=== PATIENT | female | born 1960 | race Caucasian/White ===

== ENCOUNTER 2021-07-08 08:17 | Observation (INO) | payer OTHER, MEDICAID, SELFPAY ==
[2021-07-08] VITALS (12 sets, daily range): BP systolic 90–157; BP diastolic 54–87; PULSE 44–81; RESP 16–21; TEMP 36.8–37.1; O2SAT 92–100; BMI 25.1; BMI 23.9
--- NOTE | 2021-07-08 08:20 | DI.RAD.S_ITS ---
PROCEDURE: XR ACUTE ABDOMEN SERIES INDICATIONS: severe abdominal pain TECHNIQUE: One view chest and two views of the abdomen were acquired. COMPARISON: None. FINDINGS: Surgical changes and devices: None. Chest: Lungs are clear. Heart size is normal. No pleural effusions. No pneumoperitoneum. Abdomen: There is a mildly distended small bowel loop in the left upper quadrant. Air-fluid levels are present. There is a moderate amount of stool in colon. No suspicious calcifications. Visualized solid organ contours appear normal. Bones: No suspicious bony lesions. IMPRESSION: ? Early small bowel obstruction. Dictated by: Gema Mckinley M.D. on 07/08/2021 at 8:04 Approved by: Gema Mckinley M.D. on 07/08/2021 at 8:08
--- NOTE | 2021-07-08 08:22 | ED.ABDPAIN ---
HPI - Abdominal Pain General Chief Complaint: Abdominal Pain Stated Complaint: abd back pain Time Seen by Provider: 07/08/21 08:21 History of Present Illness HPI narrative: 60-year-old female former smoker with history of kidney stones presents by EMS with a chief complaint of a relatively sudden onset abdominal pain that started low in her abdomen and has since radiated up and to her bilateral flanks. She describes it as a twisting pain and is without obvious provocation or palliation. She is profoundly nauseated but denies any vomiting. She denies change in bowel habits such as constipation or diarrhea and admits to decreased urine output. As stated, she does have a history of kidney stones but states this feels much different. She denies any change in medications or diet. Surgeries of her abdomen include hysterectomy and bladder sling a year ago or so. She was brought by paramedics and given fentanyl 50 mcg prior to her arrival. She last ate breakfast this morning Related Data Allergies Allergy/AdvReac Type Severity Reaction Status Date / Time No Known Drug Allergies Allergy Verified 07/08/21 08:26 Review of Systems Review of Systems Narrative: GENERAL: See HPI HEENT: Denies sinus pain, ear pain, sore throat, difficulty swallowing, dizziness. RESPIRATORY: Denies dyspnea, cough, wheezing, hemoptysis, sputum. CARDIOVASCULAR: Denies chest pain, palpitations, orthopnea, edema, GASTROINTESTINAL: See HPI : Denies dysuria, frequency, incontinence, hematuria, urinary retention. MUSCULOSKELETAL: denies weakness, joint pain, or bony pain SKIN: Denies rash, skin lesions, or other NEUROLOGIC: Denies weakness, headache, numbness, change in speech, confusion, seizures, incoordination. PSYCHIATRIC: No concerning psychosocial issues. 12 point review of systems is negative except for those stated above Patient History Social History Smoking Status: Never smoker Exam Narrative Exam Narrative: GENERAL: [60] year old patient appears stated age. Well-developed patient, in moderate distress, clearly in pain, tearful, holding an emesis bag HEAD: Atraumatic. Normocephalic. EYES: Pupils equal round and reactive. Extraocular motions intact. No scleral icterus. No injection or drainage. ENT: Nose without bleeding, purulent drainage. Throat without erythema, tonsillar hypertrophy or exudate. Airway patent. NECK: Trachea midline. Non tender CARDIOVASCULAR: Regular rate and rhythm without murmurs, gallops, or rubs. RESPIRATORY: Clear to auscultation. Breath sounds equal bilaterally. No wheezes, rales, or rhonchi. GASTROINTESTINAL: Abdomen soft, non-tender, nondistended. Bowel sounds present in all 4 quadrants EXTREMITIES: No edema or joint tenderness. BACK: Nontender without deformity or crepitance. No flank tenderness. NEURO: AOx3. SKIN: No rash or erythema of visible areas Initial Vital Signs Initial Vital Signs: Vital Signs Temperature 98.3 F 07/08/21 08:17 Pulse Rate 70 07/08/21 08:17 Respiratory Rate 18 07/08/21 08:17 Blood Pressure 130/87 07/08/21 08:17 Pulse Oximetry 100 07/08/21 08:17 Course Orders Ordered: ED Orders 07/08/21 08:10 Complete Blood Count AUTO DIFF Stat Comprehensive Metabolic Panel Stat Lactate (Lactic Acid) Stat Lipase Stat 07/08/21 08:20 XR acute abdomen series Stat 07/08/21 09:08 CT abdomen pelvis w con Stat 07/08/21 09:45 COVID19 -Nasal RAPID/Pre-Proc Stat Discontinued Medications Hydromorphone HCl (Hydromorphone 0.5 Mg Inj) 0.5 mg IV NOW ONE Stop: 07/08/21 08:21 Last Admin: 07/08/21 08:38 Dose: 0.5 mg Documented by: KADEEM Sodium Chloride (Normal Saline 0.9%) 1,000 mls @ 1,000 mls/hr IV BOLUS ONE Stop: 07/08/21 09:19 Last Infusion: 07/08/21 11:00 Dose: 0 mls/hr Documented by: Admin: 07/08/21 08:38 Dose: 1,000 mls/hr Documented by: KADEEM Midazolam HCl (Midazolam 5 Mg/Ml Vial) 2 mg IV NOW ONE Stop: 07/08/21 09:47 Last Admin: 07/08/21 10:09 Dose: 2 mg Documented by: KADEEM Ondansetron HCl (Ondansetron 4 Mg/2 Ml Inj) 4 mg IV NOW ONE Stop: 07/08/21 08:21 Last Admin: 07/08/21 08:38 Dose: 4 mg Documented by: KBRYERS Vital Signs Vital signs: Vital Signs - 8 hr 07/08/21 08:17 07/08/21 09:00 07/08/21 09:59 Temperature 98.3 F Pulse Rate 70 64 72 Respiratory Rate 18 18 20 Blood Pressure 130/87 120/75 Pulse Oximetry 100 98 100 07/08/21 10:00 07/08/21 10:04 Temperature Pulse Rate 69 71 Respiratory Rate 20 20 Blood Pressure 157/68 H Pulse Oximetry 100 99 MDM - Abdominal Pain Lab Data Result diagrams: 07/08/21 08:10 07/08/21 08:10 Labs: Lab Results 07/08/21 07/08/21 07/08/21 Range/Units 08:10 08:10 08:10 WBC 7.7 (4.5-11.0) X10^3/uL RBC 4.68 (4.0-5.2) X10^6/uL Hgb 14.1 (12.0-16.0) g/dL Hct 41.1 (36-46) % MCV 87.8 (80-100) fL MCH 30.0 (26-34) PG MCHC 34.2 (30-36) % RDW 14.3 (11.6-14.8) % Plt Count 175 (150-400) X10^3/uL Neut % (Auto) 74.9 (50-75) % Lymph % (Auto) 19.1 L (25-40) % [place] % (Auto) 5.1 (3-14) % Eos % (Auto) 0.4 L (2-4) % Baso % (Auto) 0.5 (0-2) % Neut # (Auto) 5800 (6628-9081) /uL Lymph # (Auto) 1500 (0124-6053) /uL [place] # (Auto) 400 (0-900) /uL Eos # (Auto) 0 (0-450) /uL Baso # (Auto) 0 (0-100) /uL Sodium 138 (137-145) mmol/L Potassium 3.7 (3.4-5.1) mmol/L Chloride 105 (98-107) mmol/L Carbon Dioxide 23 (22-32) mmol/L BUN 18 H (7-17) mg/dL Creatinine 0.75 (0.52-1.04) mg/dL Estimated GFR > 60 (>60) mL/min BUN/Creatinine Ratio 24.0 H (6-22) Glucose 139 H (80-110) mg/dL Lactate 1.9 (0.7-2.1) mmol/L Calcium 9.7 (8.4-10.2) mg/dL Total Bilirubin 0.4 (0.2-1.3) mg/dL AST 34 (14-36) IU/L ALT 26 (<35) IU/L Alkaline Phosphatase 85 (38-126) U/L Total Protein 7.7 (6.3-8.2) g/dL Albumin 4.8 (3.5-5.0) g/dL Globulin 2.9 (1.7-4.1) g/dL Albumin/Globulin Ratio 1.7 (1.0-2.8) Lipase 115 (23-300) U/L SARS-CoV-2 (PCR) (Negative) 07/08/21 Range/Units 09:45 WBC (4.5-11.0) X10^3/uL RBC (4.0-5.2) X10^6/uL Hgb (12.0-16.0) g/dL Hct (36-46) % MCV (80-100) fL MCH (26-34) PG MCHC (30-36) % RDW (11.6-14.8) % Plt Count (150-400) X10^3/uL Neut % (Auto) (50-75) % Lymph % (Auto) (25-40) % [place] % (Auto) (3-14) % Eos % (Auto) (2-4) % Baso % (Auto) (0-2) % Neut # (Auto) (5683-6992) /uL Lymph # (Auto) (9960-1664) /uL [place] # (Auto) (0-900) /uL Eos # (Auto) (0-450) /uL Baso # (Auto) (0-100) /uL Sodium (137-145) mmol/L Potassium (3.4-5.1) mmol/L Chloride (98-107) mmol/L Carbon Dioxide (22-32) mmol/L BUN (7-17) mg/dL Creatinine (0.52-1.04) mg/dL Estimated GFR (>60) mL/min BUN/Creatinine Ratio (6-22) Glucose (80-110) mg/dL Lactate (0.7-2.1) mmol/L Calcium (8.4-10.2) mg/dL Total Bilirubin (0.2-1.3) mg/dL AST (14-36) IU/L ALT (<35) IU/L Alkaline Phosphatase (38-126) U/L Total Protein (6.3-8.2) g/dL Albumin (3.5-5.0) g/dL Globulin (1.7-4.1) g/dL Albumin/Globulin Ratio (1.0-2.8) Lipase (23-300) U/L SARS-CoV-2 (PCR) Negative (Negative) Imaging Data Abdominal x-ray: Radiologist's Impression: Launch?Image [address] [address] XRay Report Signed Patient: CHAZ VALERIO MR#: [id number] : 1960 Acct:[id number] Age/Sex: 60 / F Date of Service: 07/08/21 Loc: ED Accession Number: [id number] ?? Procedure: XR acute abdomen series Ordering Provider: John Cardona D.O. PROCEDURE:? XR ACUTE ABDOMEN SERIES ? INDICATIONS:? severe abdominal pain ? TECHNIQUE:? One view chest and two views of the abdomen were acquired.? ? COMPARISON:? None. ? FINDINGS:? ? Surgical changes and devices:? None.? ? Chest:? Lungs are clear.? Heart size is normal.? No pleural effusions.? No pneumoperitoneum.? ? Abdomen:? There is a mildly distended small bowel loop in the left upper quadrant.? Air-fluid levels are present.? There is a moderate amount of stool in colon.? No suspicious calcifications.? Visualized solid organ contours appear normal.? ? Bones:? No suspicious bony lesions.? ? IMPRESSION:? ?? Early small bowel obstruction. ? ? Dictated by: Gema Mckinley M.D. on 07/08/2021 at 8:04 ? ? Approved by: Gema Mckinley M.D. on 07/08/2021 at 8:08 ? CT scan - abdomen/pelvis: Radiologist's Impression: [address] [address] [address] Scan Report Signed Patient: CHAZ VALERIO MR#: [id number] : 1960 Acct:[id number] Age/Sex: 60 / F Date of Service: 07/08/21 Loc: ED Accession Number: [id number] ?? Procedure: CT abdomen pelvis w con Ordering Provider: John Cardona D.O. PROCEDURE:? CT ABDOMEN PELVIS W CON ? INDICATIONS:? severe abdominal pain, upper, lower, radiates to back ? TECHNIQUE:? After the administration of IV contrast, axial sections were acquired from the lung bases to the pubic symphysis.? Coronal and sagittal reformats were performed.? For radiation dose reduction, the following was used:? automated exposure control, adjustment of mA and/or kV according to patient size. ? COMPARISON:? [facility], CR, XR ACUTE ABDOMEN SERIES, 07/08/2021, 8:29. ? FINDINGS:? Image quality:? Excellent.? ? Lung bases:? A 1.8 cm lucency in the right middle lobe compatible with a? pneumatocele or emphysematous bulla. Bilateral breast implants.? Small hiatal hernia. Heart:? No significant findings. ? ? ABDOMEN: Liver:? Normal size.? Mild hepatic steatosis.? ? Gallbladder:? Unremarkable.? ? Biliary ducts:? Unremarkable.? ? Pancreas:? Unremarkable.? ? Spleen:? Unremarkable.? ? Adrenal Glands:? A tiny 0.5 cm nodule is suspected in the right adrenal.? ? Kidneys and Ureters:? Unremarkable.? ? ? Stomach and Bowel:? Stomach is normal in size.? There is an air-fluid level in the gastric lumen.? Fluid-filled small intestine is mild prominence in caliber measuring up to 3 cm.? There are multiple air-fluid levels in small bowel loops in left upper abdomen. ?There is a transitional point in central pelvis.? Abundant colonic gas is present.? The CT findings suggest partial small bowel obstruction.? There are colonic diverticula.? No CT findings to suggest acute diverticulitis.? There is appearance of mild thickening of the proximal transverse colon, which is probably related to peristalsis. Peritoneum:? There is a 0.6 cm peritoneal nodule anterior to the spleen, probably a small splenule.? No abnormal intraperitoneal fluid.? No free air.? ? Ventral Wall: ? Small fat containing umbilical hernia.? Abdominal Nodes:? No retroperitoneal or mesenteric adenopathy by size criteria.? Vessels:? Aorta and inferior vena cava are normal in size.? ? PELVIS: Pelvic Organs:? There is no pathological free-fluid in the cul-de-sac.? ? Bladder:? Unremarkable.? ? Pelvic Nodes: No enlarged lymph nodes.? Miscellaneous: No inguinal hernias are seen. ? ? ? Bones:? Mild degenerative changes in lumbar spine.? IMPRESSION:? ? 1. Suspect partial small bowel obstruction.? The transitional point is in the central pelvis. ? 2. Diverticulosis without diverticulitis. ? 3. Small hiatal hernia.? ? ? The result was discussed with Dr. Cardona. ? Dictated by: Gema Mckinley M.D. on 07/08/2021 at 8:54 ? ? Approved by: Gema Mckinley M.D. on 07/08/2021 at 9:06 ? Discharge Plan Departure Patient Disposition: Admitted As Inpatient Clinical Impression: Small bowel obstruction
[2021-07-08] MEDS: HYDROMORPHONE 0.5 MG INJ IV (08:38)
[2021-07-08] MEDS: SODIUM CHLORIDE 0.9% 1,000 ML 1000 ML IV (08:38)
[2021-07-08] MEDS: ONDANSETRON 4 MG/2 ML INJ IV (08:38)
[2021-07-08 08:49] LABS: Alanine Aminotransferase 26 IU/L (<35); Albumin 4.8 g/dL (3.5-5.0); Albumin Globulin Ratio 1.7 (1.0-2.8); Alkaline Phosphatase 85 U/L (38-126); Aspartate Aminotransferase 34 IU/L (14-36); Bilirubin Total 0.4 mg/dL (0.2-1.3); Blood Urea Nitrogen 18 mg/dL (7-17); Calcium 9.7 mg/dL (8.4-10.2); Carbon Dioxide 23 mmol/L (22-32); Chloride 105 mmol/L (98-107); Estimated Glomerular Filt Rate > 60 mL/min (>60); Globulin 2.9 g/dL (1.7-4.1); Glucose 139 mg/dL (80-110); HEMOLYSIS < 15 (0-50); Lipase 115 U/L (23-300); Potassium 3.7 mmol/L (3.4-5.1); Sodium 138 mmol/L (137-145); Total Protein 7.7 g/dL (6.3-8.2)
[2021-07-08 08:51] LABS: Add Manual Diff / Slide Review NO; Basophils Absolute Auto 0 /uL (0-100); Basophils Percent Auto 0.5 % (0-2); Eosinophils Absolute Auto 0 /uL (0-450); Eosinophils Percent Auto 0.4 % (2-4); Hematocrit 41.1 % (36-46); Hemoglobin 14.1 g/dL (12.0-16.0); Lymphocytes Absolute Auto 1500 /uL (1100-4500); Lymphocytes Percent Auto 19.1 % (25-40); Mean Corpuscular HGB Conc 34.2 % (30-36); Mean Corpuscular Volume 87.8 fL (80-100); Monocytes Absolute Auto 400 /uL (0-900); Monocytes Percent Auto 5.1 % (3-14); Neutrophils Absolute Auto 5800 /uL (1500-7000); Neutrophils Percent Auto 74.9 % (50-75); Platelet Count 175 X10^3/uL (150-400); Red Blood Cell Count 4.68 X10^6/uL (4.0-5.2); Red Cell Distribution Width 14.3 % (11.6-14.8); White Blood Cell Count 7.7 X10^3/uL (4.5-11.0)
--- NOTE | 2021-07-08 09:08 | DI.CT.S_ITS ---
PROCEDURE: CT ABDOMEN PELVIS W CON INDICATIONS: severe abdominal pain, upper, lower, radiates to back TECHNIQUE: After the administration of IV contrast, axial sections were acquired from the lung bases to the pubic symphysis. Coronal and sagittal reformats were performed. For radiation dose reduction, the following was used: automated exposure control, adjustment of mA and/or kV according to patient size. COMPARISON: [facility], CR, XR ACUTE ABDOMEN SERIES, 07/08/2021, 8:29. FINDINGS: Image quality: Excellent. Lung bases: A 1.8 cm lucency in the right middle lobe compatible with a pneumatocele or emphysematous bulla. Bilateral breast implants. Small hiatal hernia. Heart: No significant findings. ABDOMEN: Liver: Normal size. Mild hepatic steatosis. Gallbladder: Unremarkable. Biliary ducts: Unremarkable. Pancreas: Unremarkable. Spleen: Unremarkable. Adrenal Glands: A tiny 0.5 cm nodule is suspected in the right adrenal. Kidneys and Ureters: Unremarkable. Stomach and Bowel: Stomach is normal in size. There is an air-fluid level in the gastric lumen. Fluid-filled small intestine is mild prominence in caliber measuring up to 3 cm. There are multiple air-fluid levels in small bowel loops in left upper abdomen. There is a transitional point in central pelvis. Abundant colonic gas is present. The CT findings suggest partial small bowel obstruction. There are colonic diverticula. No CT findings to suggest acute diverticulitis. There is appearance of mild thickening of the proximal transverse colon, which is probably related to peristalsis. Peritoneum: There is a 0.6 cm peritoneal nodule anterior to the spleen, probably a small splenule. No abnormal intraperitoneal fluid. No free air. Ventral Wall: Small fat containing umbilical hernia. Abdominal Nodes: No retroperitoneal or mesenteric adenopathy by size criteria. Vessels: Aorta and inferior vena cava are normal in size. PELVIS: Pelvic Organs: There is no pathological free-fluid in the cul-de-sac. Bladder: Unremarkable. Pelvic Nodes: No enlarged lymph nodes. Miscellaneous: No inguinal hernias are seen. Bones: Mild degenerative changes in lumbar spine. IMPRESSION: 1. Suspect partial small bowel obstruction. The transitional point is in the central pelvis. 2. Diverticulosis without diverticulitis. 3. Small hiatal hernia. The result was discussed with Dr. Cardona. Dictated by: Gema Mckinley M.D. on 07/08/2021 at 8:54 Approved by: Gema Mkcinley M.D. on 07/08/2021 at 9:06
[2021-07-08 10:07] LABS: COVID19 -Nasal RAPID Negative (Negative)
[2021-07-08] MEDS: MIDAZOLAM 5 MG/ML VIAL 2 MG IV (10:09)
--- NOTE | 2021-07-08 10:15 | PC.NURSE ---
attempted to place ngt 18 fr both right and left nares x 4 total attempts (2x each nare) by 2 RN's, premedicated with versed 2 mg iv.
[2021-07-08 10:25] LABS: Lactate (Lactic Acid) 1.9 mmol/L (0.7-2.1)
--- NOTE | 2021-07-08 11:11 | PC.NURSE ---
Attempted to insert 14french NGT twice; patient did not tolerate procedure; unable to insert.
[2021-07-08] MEDS: MORPHINE 4 MG/ML INJ IV (12:07)
[2021-07-08] MEDS: ONDANSETRON 4 MG/2 ML INJ (12:08)
--- NOTE | 2021-07-08 12:12 | PC.NURSE ---
Addendum entered by Lanny Talamantes R.N. 07/08/21 18:37: 1700-Pt up ambulating to BR as SBA. Urine clear, sent for UA. NS infusing @ 150, Pt reports significant improvement to pain, denies nausea. Tolerating clear liquids at meal. Addendum entered by Lanny Talamantes R.N. 07/08/21 16:49: Pt markedly more comfortable, admission completed, denies nausea. Reduced Morphine to 1mg IV. Tolerating clear liq diet Addendum entered by Lanny Talamantes R.N. 07/08/21 13:13: 1300-Pt is finally having some relief with morphine and antinausea medication. 2L nc placed for Spo2 88% Original Note: 1130-Admit: Pt arrived from ER moaning in pain. Transferred to bed , Pt is diaphoretic, screaming and rolling in bed. Call into Dr Cardona as no pain medications ordered yet, Verbal order for Dilaudid, Pt declines, as it made her nauseated and didnt help with pain in ER. Dr Marquez admitting and Ordered Morphine and zofran. Given. Pt remains 8/10, unable to get into comfortable position. No NG placed in ER, unable d/t pain. Will work on admission after patient is more comfortable.
[2021-07-08] MEDS: METOCLOPRAMIDE 10 MG/2 ML INJ IV (12:54)
[2021-07-08] MEDS: SODIUM CHLORIDE 0.9% 1,000 ML 150 ML IV ×2 (12:54→18:59)
[2021-07-08] MEDS: MORPHINE 2 MG/ML INJ IV (12:55)
--- NOTE | 2021-07-08 13:06 | P.CONS_ITS ---
History of Present Illness Consult details Date Patient Seen: 07/08/21 Chief complaint: abd back pain Narrative: Allison is a 60-year-old woman who presented with several hours of sudden severe abdominal pain to the ER today. She says that the severe pain comes in waves but there is always some baseline pain. She said the pain started in her lower abdomen when she is having bowel movements this morning and has since spread to her upper abdomen and radiates to her back. She also reports feeling burning pain in her rectum when she wiped. She had several bowel movements today and she has passed gas multiple times today. She is nauseous but she has not vomited. A CT scan reported that she may have had a partial small bowel obstruction. She reports that she had an open appendectomy many years ago and a hysterectomy and bladder sling 1 year ago. Meds Home Medications and Allergies Allergies Allergy/AdvReac Type Severity Reaction Status Date / Time No Known Drug Allergies Allergy Verified 07/08/21 08:26 Exam Vital Signs (past 8 hours): - 07/08/21 08:17 07/08/21 09:00 07/08/21 09:59 Temperature 98.3 F Pulse Rate 70 64 72 Respiratory Rate 18 18 20 Blood Pressure 130/87 120/75 Pulse Oximetry 100 98 100 07/08/21 10:00 07/08/21 10:04 07/08/21 10:30 Temperature Pulse Rate 69 71 61 Respiratory Rate 20 20 21 Blood Pressure 157/68 H 132/60 Pulse Oximetry 100 99 92 07/08/21 11:00 07/08/21 11:01 07/08/21 12:18 Temperature 98.7 F Pulse Rate 81 65 63 Respiratory Rate 21 21 18 Blood Pressure 142/65 H 131/62 Pulse Oximetry 100 100 100 Oxygen Delivery Method Room Air Oxygen Flow Rate 0 Narrative Exam Narrative: She is anxious appearing and in distress Abdomen is diffusely tender but no tenderness to percussion There is a right transverse appendectomy scar Objective Labs Result Diagrams: 07/08/21 08:10 07/08/21 08:10 Labs: Laboratory Results - last 24 hr 07/08/21 07/08/21 07/08/21 08:10 08:10 08:10 WBC 7.7 RBC 4.68 Hgb 14.1 Hct 41.1 MCV 87.8 MCH 30.0 MCHC 34.2 RDW 14.3 Plt Count 175 Neut % (Auto) 74.9 Lymph % (Auto) 19.1 L [place] % (Auto) 5.1 Eos % (Auto) 0.4 L Baso % (Auto) 0.5 Neut # (Auto) 5800 Lymph # (Auto) 1500 [place] # (Auto) 400 Eos # (Auto) 0 Baso # (Auto) 0 Sodium 138 Potassium 3.7 Chloride 105 Carbon Dioxide 23 BUN 18 H Creatinine 0.75 Estimated GFR > 60 BUN/Creatinine Ratio 24.0 H Glucose 139 H Lactate 1.9 Calcium 9.7 Total Bilirubin 0.4 AST 34 ALT 26 Alkaline Phosphatase 85 Total Protein 7.7 Albumin 4.8 Globulin 2.9 Albumin/Globulin Ratio 1.7 Lipase 115 SARS-CoV-2 (PCR) 07/08/21 09:45 WBC RBC Hgb Hct MCV MCH MCHC RDW Plt Count Neut % (Auto) Lymph % (Auto) [place] % (Auto) Eos % (Auto) Baso % (Auto) Neut # (Auto) Lymph # (Auto) [place] # (Auto) Eos # (Auto) Baso # (Auto) Sodium Potassium Chloride Carbon Dioxide BUN Creatinine Estimated GFR BUN/Creatinine Ratio Glucose Lactate Calcium Total Bilirubin AST ALT Alkaline Phosphatase Total Protein Albumin Globulin Albumin/Globulin Ratio Lipase SARS-CoV-2 (PCR) Negative [facility] Tobacco & Substance Use Smoking Status: Never smoker Assessment & Plan Assessment and plan (1) Abdominal pain: Qualifiers: Abdominal location: unspecified location Qualified Code(s): R10.9 - Unspecified abdominal pain Status: Acute Plan Although the radiologist reported a possible partial small-bowel obstruction she has been passing gas since her symptoms started ruling out a clinical small- bowel obstruction. Her pain out of proportion to exam could reflect a mesen teric ischemia or an internal hernia but with normal labs, vital signs and no angelica peritonitis on exam this remains less likely. Recommend continuing to check lactate levels and vital signs. If her symptoms improve she could be started on a clear liquid diet and advanced as tolerates. If her lactate suddenly spikes or her vital signs become abnormal we could proceed with an exploratory laparoscopy. Time Spent With Patient Critical Care time: I spent a total of [] minutes of critical care time on this patient's care t lesli; this time is exclusive of procedural time.
--- NOTE | 2021-07-08 14:19 | P.HP_ITS ---
History of Present Illness History of Present Illness Date Patient Seen: 07/08/21 Date of Onset of Symptoms: 07/08/21 Chief complaint: abd back pain Narrative: 60-year-old female with history of kidney stones developed acute abdominal pain around 530 this morning. Discomfort started while [place] who lives on [place]. The pain became progressively worse and she decided to have checked out in the ED. Location of pain is bilateral upper and lower. She did have some loose bowel movements this morning. She has not had dry heaves or vomiting. She has history of prior hysterectomy and bladder sling. On ER evaluation, CBC is normal, lytes normal, lactate normal. CT scan showed possible partial small-bowel obstruction, diverticulosis without diverticulitis, small hiatal hernia. Surgery was consulted. Patient History Family & Social History Safety & Behavioral: Feels Safe in Current Yes Environment Been Physically Hurt or No Threatened By a Person Tobacco & Substance use: Smoking Status Never smoker Substance Use Type does not use Meds Home Medications and Allergies Home Medications Medication Instructions Recorded Confirmed Type No Known Home Medications 07/08/21 07/08/21 History Allergies Allergy/AdvReac Type Severity Reaction Status Date / Time No Known Drug Allergies Allergy Verified 07/08/21 08:26 Review of Systems Review of Systems Narrative: No fever, chills, cough, chest pain, dyspnea, urinary discomfort, rash. Exam Vital Signs (past 8 hours): - 07/08/21 08:17 07/08/21 09:00 07/08/21 09:59 Temperature 98.3 F Pulse Rate 70 64 72 Respiratory Rate 18 18 20 Blood Pressure 130/87 120/75 Pulse Oximetry 100 98 100 07/08/21 10:00 07/08/21 10:04 07/08/21 10:30 Temperature Pulse Rate 69 71 61 Respiratory Rate 20 20 21 Blood Pressure 157/68 H 132/60 Pulse Oximetry 100 99 92 07/08/21 11:00 07/08/21 11:01 07/08/21 12:18 Temperature 98.7 F Pulse Rate 81 65 63 Respiratory Rate 21 21 18 Blood Pressure 142/65 H 131/62 Pulse Oximetry 100 100 100 Oxygen Delivery Method Room Air Oxygen Flow Rate 0 Narrative Exam Narrative: General: Alert and currently NAD HEENT: Pupils equal oropharynx moist Neck: No lymphadenopathy Lungs: Clear to auscultation Heart: Regular rate and rhythm without murmur Abdomen: Nondistended, soft, tender with deep palpation in all 4 quadrants, no abdominal mass or HSM Extremities: No edema Neurological normal affect and speech Objective Labs Result Diagrams: 07/08/21 08:10 07/08/21 08:10 Labs: Laboratory Results - last 24 hr 07/08/21 07/08/21 07/08/21 08:10 08:10 08:10 WBC 7.7 RBC 4.68 Hgb 14.1 Hct 41.1 MCV 87.8 MCH 30.0 MCHC 34.2 RDW 14.3 Plt Count 175 Neut % (Auto) 74.9 Lymph % (Auto) 19.1 L [place] % (Auto) 5.1 Eos % (Auto) 0.4 L Baso % (Auto) 0.5 Neut # (Auto) 5800 Lymph # (Auto) 1500 [place] # (Auto) 400 Eos # (Auto) 0 Baso # (Auto) 0 Sodium 138 Potassium 3.7 Chloride 105 Carbon Dioxide 23 BUN 18 H Creatinine 0.75 Estimated GFR > 60 BUN/Creatinine Ratio 24.0 H Glucose 139 H Lactate 1.9 Calcium 9.7 Total Bilirubin 0.4 AST 34 ALT 26 Alkaline Phosphatase 85 Total Protein 7.7 Albumin 4.8 Globulin 2.9 Albumin/Globulin Ratio 1.7 Lipase 115 SARS-CoV-2 (PCR) 07/08/21 09:45 WBC RBC Hgb Hct MCV MCH MCHC RDW Plt Count Neut % (Auto) Lymph % (Auto) [place] % (Auto) Eos % (Auto) Baso % (Auto) Neut # (Auto) Lymph # (Auto) [place] # (Auto) Eos # (Auto) Baso # (Auto) Sodium Potassium Chloride Carbon Dioxide BUN Creatinine Estimated GFR BUN/Creatinine Ratio Glucose Lactate Calcium Total Bilirubin AST ALT Alkaline Phosphatase Total Protein Albumin Globulin Albumin/Globulin Ratio Lipase SARS-CoV-2 (PCR) Negative Assessment & Plan Assessment & Plan narrative: 1. Possible small-bowel obstruction versus bowel spasm -CT scan with multiple air-fluid levels, but patient passing gas and had bowel movements and not vomiting which argues against SBO -Dr. Haskins evaluated patient, no surgery indicated at this time -pain responded to IV morphine -continue IV morphine as needed -IV fluids -clear liquid diet -overnight observation Time Spent With Patient Critical Care time: I spent a total of [] minutes of critical care time on this patient's care today; this time is exclusive of procedural time.
[2021-07-08] MEDS: MORPHINE 2 MG/ML INJ 1 MG IV (15:52)
[2021-07-08 18:37] LABS: Appearance Urine UA CLEAR; Bilirubin Urine UA NEGATIVE (NEGATIVE); Color Urine UA YELLOW; Glucose Urine UA NEGATIVE (Negative); Ketones Urine UA 1+ (NEGATIVE); Leukocyte Esterase Urine UA NEGATIVE (NEGATIVE); Nitrite Urine UA NEGATIVE (Negative); Occult Blood Urine UA TRACE-INTACT (Negative); Protein Urine UA NEGATIVE (Negative); Urobilinogen Urine UA 0.2 E.U./dL (0.2)
[2021-07-08 18:48] LABS: pH Urine UA 6.5 (4.5-8.0)
[2021-07-08 18:53] LABS: RBC Urine 5-10/HPF (0-5/HPF); WBC Urine 1-5/HPF (0-5/HPF)
[2021-07-08 18:54] LABS: Bacteria Urine None Seen; Culture Indicated Urine Cult Not Indicated; Squamous Epithelial Cell Urine 1-5 /HPF (0-5/HPF)
[2021-07-09] VITALS: BP 88/50; PULSE 44; RESP 16; O2SAT 96
[2021-07-09 00:05] VITALS: BP 86/50; PULSE 49; RESP 17; TEMP 36.4; O2SAT 97
[2021-07-09] MEDS: SODIUM CHLORIDE 0.9% 1,000 ML 150 ML IV (01:40)
[2021-07-09 04:00] VITALS: BP 92/52; PULSE 64; RESP 15; TEMP 36.7; O2SAT 99
[2021-07-09 05:19] LABS: Add Manual Diff / Slide Review NO; Basophils Absolute Auto 0 /uL (0-100); Basophils Percent Auto 0.7 % (0-2); Eosinophils Absolute Auto 100 /uL (0-450); Hematocrit 38.5 % (36-46); Lymphocytes Absolute Auto 2400 /uL (1100-4500); Lymphocytes Percent Auto 46.3 % (25-40); Mean Corpuscular HGB Conc 33.9 % (30-36); Mean Corpuscular Hemoglobin 29.8 PG (26-34); Mean Corpuscular Volume 88.1 fL (80-100); Monocytes Absolute Auto 400 /uL (0-900); Monocytes Percent Auto 8.2 % (3-14); Neutrophils Absolute Auto 2300 /uL (1500-7000); Neutrophils Percent Auto 43.8 % (50-75); Platelet Count 155 X10^3/uL (150-400); Red Blood Cell Count 4.37 X10^6/uL (4.0-5.2); Red Cell Distribution Width 14.2 % (11.6-14.8); White Blood Cell Count 5.2 X10^3/uL (4.5-11.0)
[2021-07-09 05:33] LABS: Prothrombin Time 11.7 SECONDS (10.1-12.7)
[2021-07-09 05:37] LABS: BUN Creatinine Ratio 11.4 (6-22); Blood Urea Nitrogen 8 mg/dL (7-17); Calcium 8.8 mg/dL (8.4-10.2); Carbon Dioxide 24 mmol/L (22-32); Chloride 114 mmol/L (98-107); Estimated Glomerular Filt Rate > 60 mL/min (>60); Glucose 79 mg/dL (80-110); HEMOLYSIS < 15 (0-50); Potassium 4.1 mmol/L (3.4-5.1); Sodium 141 mmol/L (137-145)
[2021-07-09 08:58] VITALS: O2SAT 99
--- NOTE | 2021-07-09 11:23 | CM.IDA ---
DCP: Case received, EMR reviewed and met with patient. Introduced self and role. Was able to obtain information regarding patient's baseline status prior to hospitalization. DCP assessment completed with information currently available. Patient is a 60 year old female who admitted yesterday morning to the care of the hospitalist team. PCP: [facility] in [place]. Payer: confirmed: [employer]. Patient came to the hospital via ambulance secondary to having acute abdominal pain, while she was visiting her son on [facility] [place]. Patient was diagnosed with possible small-bowel obstruction versus bowel spasm. She was consulted by Dr. Ji, surgeon, no surgery indicated at this time. Met with patient in her room. She is pleasant, alert and oriented, and was sitting up in bed. She indicated, I am feeling so much better today than yesterday. Confirmed that patient resides in [place], and drove up to visit her son on [facility] [place]. She is independent at her baseline, and is employed at [employer]. She was concerned if her insurance will pay for services. Let her know that her insurance will be billed, if they do not cover some of her stay, she can always get [facility] application, and she can discuss with billing if needed. She plans to go back home, instead of [facility] upon discharge. P: Patient has discharge orders for home today. Arabella Machado RN/Performing [employer] Manager Discharge Planning/Care Management CM Discharge Assessment Start: 07/09/21 11:22 Freq: Status: Discharge Protocol: Document 07/09/21 11:22 (Rec: 07/09/21 11:22 [id number]) Discharge Planning Assessment Assigned Carpet Layer Arabella Machado RN/[employer]forming [employer] Manager Advance Directives? No History Provided By Patient,Medical Record Prior Living Arrangements House Household Members friend(s) Type of transporation used prior to Drives own vehicle admit Willing to Return to Facility? No Independent with ADL's Yes Is patient alert and oriented? Yes Caregiver for Another No Discharge Plan Home Transportation Arrangement Family or self Referrals Initiated None needed Whiteboard Updated in Patient Room with Yes name and ext. # of Carpet Layer Review Status In Process Next Review Type Continued Stay Review
--- NOTE | 2021-07-09 20:54 | PM.DS.1 ---
History of Present Illness History of Present Illness Chief complaint: abd back pain Narrative: 60-year-old female with history of kidney stones developed acute abdominal pain around 530 this morning. Discomfort started while she was [place] from [place] son who lives on [place]. The pain became progressively worse and she decided to have checked out in the ED. Location of pain is bilateral upper and lower. She did have some loose bowel movements this morning. She has not had dry heaves or vomiting. She has history of prior hysterectomy and bladder sling. On ER evaluation, CBC is normal, lytes normal, lactate normal. CT scan showed possible partial small-bowel obstruction, diverticulosis without diverticulitis, small hiatal hernia. Surgery was consulted. Discharge Providers Provider Date of admission: 07/08/21 11:46 Discharge Date: 07/09/21 Consults: 07/08/21 11:59 Consult to Physician Routine Comment: Consulting Provider: Martín Haskins Reason for consultation: SBO Has provider been notified: Yes 07/08/21 16:06 Consult to Pastoral Services Routine Comment: Would like a visit when able Discharge provider: Jacinto Marquez MD Summary Hospital Course Discharge Diagnosis: 1. Acute abdominal pain, resolved Hospital Course: Patient was admitted overnight for acute abdominal pain. Surgery was consulted and did not think she had a small bowel obstruction as suggested by CT. She was already having bowel movements and passing gas. She did well overnight and tolerated full breakfast before going home. Status at Discharge Overall status at discharge: patient is back to baseline Time Spent with Patient Time spent: Less than 30 minutes Exam Vital Signs (past 8 hours): Oxygen Delivery Method Room Air Oxygen Flow Rate 0 Narrative Exam Narrative: General: Alert and pleasant in no acute distress Breathing nonlabored Abdomen soft and nontender Extremities nonedematous Objective Labs Result Diagrams: 07/09/21 04:35 07/09/21 04:35 Labs: Laboratory Results - last 24 hr 07/08/21 07/09/21 07/09/21 13:55 04:35 04:35 WBC 5.2 RBC 4.37 Hgb 13.0 Hct 38.5 MCV 88.1 MCH 29.8 MCHC 33.9 RDW 14.2 Plt Count 155 Neut % (Auto) 43.8 L D Lymph % (Auto) 46.3 H D [place] % (Auto) 8.2 Eos % (Auto) 1.0 L Baso % (Auto) 0.7 Neut # (Auto) 2300 Lymph # (Auto) 2400 [place] # (Auto) 400 Eos # (Auto) 100 Baso # (Auto) 0 PT 11.7 INR 1.0 Sodium Potassium Chloride Carbon Dioxide BUN Creatinine Estimated GFR BUN/Creatinine Ratio Glucose Calcium Nasal Screen MRSA (PCR) Negative for mrsa 07/09/21 04:35 WBC RBC Hgb Hct MCV MCH MCHC RDW Plt Count Neut % (Auto) Lymph % (Auto) [place] % (Auto) Eos % (Auto) Baso % (Auto) Neut # (Auto) Lymph # (Auto) [place] # (Auto) Eos # (Auto) Baso # (Auto) PT INR Sodium 141 Potassium 4.1 Chloride 114 H Carbon Dioxide 24 BUN 8 Creatinine 0.70 Estimated GFR > 60 BUN/Creatinine Ratio 11.4 Glucose 79 L Calcium 8.8 Nasal Screen MRSA (PCR) [facility] Social History household members: friend(s) Smoking Status: Never smoker alcohol intake: former Discharge Plan Discharge Plan Patient Disposition: Home Discharge orders & Medications Prescriptions: Continued multivit with min-folic acid 200 mcg Tablet,Chewable 1 tab PO DAILY 0RF Diet/Activity/Treatments Diet: Diet as Tolerated Quality VTE Deep Vein Thrombosis/Pulmonary Embolism Present on Admission: No
== END 2021-07-09 10:16 | disposition home or self-care (01) ==
LOC: ED 11:03 → ICU 14:09 → AC 07-10 07:09
PROVIDERS: Admitting Provider Internal Medicine; Emergency Provider Emergency Medicine; Referring Provider Emergency Medicine; Visit Provider Internal Medicine
DX: R10.30 Lower abdominal pain, unspecified (principal); R10.10 Upper abdominal pain, unspecified; Z20.822 Contact with and (suspected) exposure to COVID-19
CPT/HCPCS: 36415; 74022; 74177; 80048; 80053; 81001; 83605; 83690; 85025; 85610; 87635; 87797; 94762; 96374; 96375; 96376; 99225; 99284; C9803; G0378; J1170; J2250; J2270; J2405; J2765; Q9967